=== PATIENT | male | born 1980 | race Caucasian/White ===

== ENCOUNTER 2018-11-14 09:50 | Emergency (ER) | payer SELFPAY ==
[~2018-11-14] VITALS: Ht 175.3 cm; Wt 90.9 kg
[~2018-11-14 09:50] MED LIST: FAMO20 PO; OMEP20 PO; TRAM50TA4 PO
[2018-11-14 12:00] VITALS: BP 119/82
== END 2018-11-14 12:24 | disposition home or self-care (01) ==
LOC: EMS 09:51
DX: F11.10 Opioid abuse, uncomplicated (principal); Z11.1 Encounter for screening for respiratory tuberculosis; F17.290 Nicotine dependence, other tobacco product, uncomplicated; Z88.2 Allergy status to sulfonamides; Z79.899 Other long term (current) drug therapy
CPT/HCPCS: 99406